=== PATIENT | male | born 1985 | race Caucasian/White ===

== ENCOUNTER 2018-08-03 05:15 | Emergency (ER) | payer OTHER ==
[~2018-08-03] VITALS: Ht 188 cm; Wt 100.0 kg
[2018-08-03] MEDS ORDERED: LIDOCAINE/PF 1% 2 ML VIAL ONE (06:26)
[2018-08-03] MEDS ORDERED: BUPIVACAINE HCL/PF 0.25% 10 ML VIAL INJ ONE (06:30)
[2018-08-03] MEDS ORDERED: GENTAMICIN SULFATE 40 MG/ML 2 ML VIAL IM ONE (06:30)
[2018-08-03] MEDS ORDERED: CefTRIAXone SODIUM 1 GM/VIAL IM ONE (06:30)
[2018-08-03 07:35] LABS: BASOPHILS % (AUTO) 0.5 % (0.0-2.0); EOSINOPHILS % (AUTO) 1.6 % (1.0-6.0); HEMATOCRIT 31.3 % (41-53); LYMPHOCYTES # (AUTO) 2.9 K/uL (1.0-4.8); LYMPHOCYTES % (AUTO) 37.1 % (22.0-44.0); MEAN CORPUSCULAR HEMOGLOBIN 29.2 pg (26.0-34.0); MEAN CORPUSCULAR HGB CONC 35.1 G/dL (31.0-37.0); MEAN CORPUSCULAR VOLUME 83 fL (80-100); MONOCYTES # (AUTO) 0.6 K/uL (0.1-1.0); MONOCYTES % (AUTO) 7.9 % (2.0-9.0); NEUTROPHILS # (AUTO) 4.1 K/uL (1.8-7.7); NEUTROPHILS % (AUTO) 52.9 % (40.0-70.0); PLATELET COUNT (AUTO) 328 K/uL (150-450); RED BLOOD CELL COUNT(AUTO) 3.76 MIL/uL (4.50-5.90); RED CELL DISTRIBUTION WIDTH 14.2 % (11.5-14.5)
[2018-08-03 07:45] LABS: ANION GAP 5 mmol/L (8-16); CALCIUM, TOTAL 8.4 mg/dL (8.8-10.5); CARBON DIOXIDE 29 mmol/L (22-29); CHLORIDE 102 mmol/L (98-107); CREATININE 0.83 mg/dL (0.60-1.30); GLOMERULAR FILTR. RATE CALC > 60 mL/min (>60); GLUCOSE,RANDOM 115 mg/dL (70-110); POTASSIUM 3.5 mmol/L (3.5-5.1); SODIUM SERUM 136 mmol/L (136-145); UREA NITROGEN, BLOOD 16 mg/dL (7-18)
[2018-08-03 07:50] VITALS: BP 121/72
[2018-08-03 07:51] LABS: ALANINE AMINOTRANSFERASE 22 U/L (12-78); ALBUMIN 2.9 g/dL (3.4-5.0); ALKALINE PHOSPHATASE 82 U/L (46-116); ASPARTATE AMINOTRANSFERASE 18 U/L (15-37); BILIRUBIN,TOTAL 0.4 mg/dL (0.1-1.0); TOTAL PROTEIN, SERUM 7.2 g/dL (6.4-8.2)
[2018-08-03] MEDS ORDERED: PERTUSS(ACELL),DIPH,TET VAC/PF 0.5 ML VIAL IM ONE (08:15)
[2018-08-03 08:27] LABS: LACTIC ACID 1.1 mmol/L (0.4-2.0)
== END 2018-08-03 08:18 | disposition left against medical advice (07) ==
LOC: EMS 05:15
DX: L02.415 Cutaneous abscess of right lower limb (principal); L02.414 Cutaneous abscess of left upper limb; L03.115 Cellulitis of right lower limb; F11.10 Opioid abuse, uncomplicated
CPT/HCPCS: 10061; 36415; 80053; 83605; 85025; 87040; 87070; 87077; 87186; 87205; 90471; 90715; 96372; 99284; J0696; J1580; J3490 ×2; 10060